=== PATIENT | male | born 1965 | race Caucasian/White ===

== ENCOUNTER 2022-11-25 07:19 | Day surgery (SDC) | payer BC ==
[~2022-11-25 07:19] MED LIST: Lactated Ringers 1,000 ML IV SCH; Lidocaine 1%/Sod Bicarbonate in NS 8.4% 1 ML Syringe IDERM PRN; Sodium Chloride 0.9% 10 ML Syringe FLUSH PRN; Sodium Chloride 0.9% 10 ML Syringe FLUSH SCH
[2022-11-25] MEDS ORDERED: Lidocaine 1% 2 ML ONE (08:06)
[2022-11-25] MEDS ORDERED: Propofol 200 MG/20 ML SDV ONE (08:06)
[2022-11-25] MEDS ORDERED: Midazolam 1 MG/ML 2 ML SDV ONE (08:07)
[2022-11-25] MEDS ORDERED: fentaNYL 100 MCG/2 ML SDV ONE (08:07)
== END 2022-11-25 09:35 | disposition home or self-care (01) ==
LOC: JD.SDS 07:19
PROVIDERS: ATTEND Surgery
DX: Z12.11 Encounter for screening for malignant neoplasm of colon (principal); I10 Essential (primary) hypertension; E78.1 Pure hyperglyceridemia; E11.40 Type 2 diabetes mellitus with diabetic neuropathy, unspecified; E11.21 Type 2 diabetes mellitus with diabetic nephropathy; Z88.0 Allergy status to penicillin; Z79.84 Long term (current) use of oral hypoglycemic drugs; Z79.4 Long term (current) use of insulin; Z79.899 Other long term (current) drug therapy; Z87.891 Personal history of nicotine dependence
CPT/HCPCS: 45378; J2250; J2704; J3010; J7120; 00812; J3490

== ENCOUNTER 2023-06-13 10:27 | Emergency (ER) | payer BC ==
[2023-06-13] MEDS ORDERED: HYDROmorphone 1 MG/ML Syringe IVPUSH ONE (10:45)
[2023-06-13] MEDS ORDERED: Sodium Chloride 0.9% 10 ML Syringe FLUSH PRN (10:46)
[2023-06-13] MEDS ORDERED: Metoclopramide 10 MG/2 ML SDV IVPUSH ONE (10:46)
[2023-06-13 11:08] LABS: BASOPHILS ABSOLUTE AUTO 0.1 K/mm3 (0.0-0.2); BASOPHILS PERCENT AUTO 0.8 % (0.0-1.0); EOSINOPHILS ABSOLUTE AUTO 0.2 K/mm3 (0.0-0.4); EOSINOPHILS PERCENT AUTO 2.3 % (0.0-6.0); HEMATOCRIT 41.7 % (42.0-52.0); HEMOGLOBIN 14.6 gm/dl (14.0-18.0); IMMATURE GRAN ABSOLUTE AUTO 0.06 K/mm3 (0.00-0.05); IMMATURE GRAN PERCENT AUTO 0.9 % (0.0-0.4); LYMPHOCYTES PERCENT AUTO 30.8 % (24.0-44.0); MEAN CORPUSCULAR HEMOGLOBIN 30.8 pg (28.0-32.0); MEAN PLATELET VOLUME 10.2 fl (9.4-12.4); MONOCYTES ABSOLUTE AUTO 0.5 K/mm3 (0.0-0.8); MONOCYTES PERCENT AUTO 7.9 % (0.0-8.0); NEUTROPHILS ABSOLUTE AUTO 3.8 K/mm3 (1.8-7.7); NEUTROPHILS PERCENT AUTO 57.3 % (41.0-71.0); PLATELET COUNT,PLT 228 K/mm3 (150-400); RED BLOOD CELL COUNT 4.74 M/mm3 (4.52-5.90)
[2023-06-13 11:25] LABS: INR 0.96; PROTHROMBIN TIME 10.3 SECONDS (9.7-12.0)
[2023-06-13 11:27] LABS: PTT,PARTIAL THROMBOPLSTIN TIME 24.7 SECONDS (21.7-31.4)
[2023-06-13 11:37] LABS: A/G RATIO 1.2 (1-2); ALANINE AMINOTRANSFERASE,ALT 61 U/L (16-63); ALBUMIN 4.3 g/dl (3.4-5.0); ALKALINE PHOSPHATASE 74 U/L (46-116); ANION GAP 16.7 (5-15); BILIRUBIN TOTAL 0.6 mg/dL (0.2-1.0); BLOOD UREA NITROGEN,BUN 31 mg/dL (7-18); C-REACTIVE PROTEIN <0.2 mg/dL (<1.0); CALCIUM 9.2 mg/dL (8.5-10.1); CARBON DIOXIDE,CO2 22 mEq/L (21-32); CHLORIDE,CL 101 mEq/L (98-107); EST CRCL DRUG DOSING (CG) 83.14 mL/min; ESTIMATED GFR 87 mL/min (>60); MAGNESIUM 1.5 mg/dL (1.8-2.4); SODIUM,NA 135 mEq/L (136-145)
[2023-06-13 11:38] LABS: GLUCOSE RANDOM 253 mg/dL (70-99); POTASSIUM,K 4.7 mEq/L (3.5-5.1)
== END 2023-06-13 13:12 | disposition home or self-care (01) ==
LOC: JD.ED 10:27
DX: R07.89 Other chest pain (principal); M75.22 Bicipital tendinitis, left shoulder; E11.9 Type 2 diabetes mellitus without complications; I10 Essential (primary) hypertension; Z79.4 Long term (current) use of insulin; Z79.82 Long term (current) use of aspirin; Z79.84 Long term (current) use of oral hypoglycemic drugs; Z79.899 Other long term (current) drug therapy; Z88.0 Allergy status to penicillin
CPT/HCPCS: 36415; 71045; 80053; 82947; 83735; 83880; 84484; 85025; 85610; 85730; 86140; 93005; 96374; 96375; 99285; J1170; J2765; J3490; 93010; 99284

== ENCOUNTER 2024-11-09 09:02 | Day surgery (SDC) | payer BC ==
[~2024-11-09 09:02] MED LIST changes: -Lactated Ringers 1,000 ML IV SCH; -Lidocaine 1%/Sod Bicarbonate in NS 8.4% 1 ML Syringe IDERM PRN
[2024-11-09] MEDS ORDERED: Triamcinolone Acetonide 40 MG/ML 1 ML SDV ONE (09:14)
[2024-11-09] MEDS: Lactated Ringers 1,000 ML IV SCH (09:30)
[2024-11-09] MEDS: Pregabalin 25 MG Cap PO ONE (10:45)
[2024-11-09] MEDS: Acetaminophen 325 MG Tab PO ONE (10:45)
[2024-11-09] MEDS: oxyCODONE ER 10 MG TAB.ER PO ONE (10:45)
[2024-11-09] MEDS ORDERED: Propofol 200 MG/20 ML SDV ONE ×4 (11:33→12:43)
[2024-11-09] MEDS ORDERED: fentaNYL 100 MCG/2 ML SDV ONE (11:34)
[2024-11-09] MEDS ORDERED: EPINEPHrine 1 MG/ML SDV ONE (11:41)
[2024-11-09] MEDS ORDERED: ceFAZolin 2 GM Vial ONE (11:52)
[2024-11-09] MEDS ORDERED: Ropivacaine 0.5% 5 MG/ML 30 ML SDV ONE (12:14)
[2024-11-09] MEDS ORDERED: dexmedeTOMIDine HCl 200 MCG/2 ML SDV ONE (12:16)
[2024-11-09] MEDS ORDERED: Dexamethasone 4 MG/ML 5 ML MDV ONE (12:17)
[2024-11-09] MEDS: Morphine 8 MG, EPINEPHrine 0.3 MG, Cefuroxime 750 MG, Ketorolac 30 MG, Sodium Chloride ... PRN (12:57)
[2024-11-09] MEDS: VANCOmycin 1 GM SDV ONE (13:03)
[2024-11-09] MEDS: Tranexamic Acid 1,000 MG/10 ML Vial ONE (13:03)
[2024-11-09] MEDS: Triamcinolone Acetonide 40 MG/ML 1 ML SDV ONE (13:17)
[2024-11-09] MEDS: Bupivacaine 0.25% 10 ML SDV ONE (13:17)
[2024-11-09] MEDS ORDERED: fentaNYL 100 MCG/2 ML SDV IVPUSH PRN (13:43)
[2024-11-09] MEDS ORDERED: Ondansetron 4 MG/2 ML SDV IVPUSH PRN (13:43)
[2024-11-09] MEDS ORDERED: HYDROmorphone 0.5 MG/0.5 ML Syringe IVPUSH PRN (13:43)
[2024-11-09] MEDS: oxyCODONE 5 MG Tab PO PRN (15:25)
== END 2024-11-09 17:05 | disposition home or self-care (01) ==
LOC: JD.SDS 09:02
PROVIDERS: ATTEND Orthopaedic Surgery
DX: M17.11 Unilateral primary osteoarthritis, right knee (principal); M70.62 Trochanteric bursitis, left hip; I10 Essential (primary) hypertension; E78.00 Pure hypercholesterolemia, unspecified; Z86.16 Personal history of COVID-19; Z88.0 Allergy status to penicillin; Z79.82 Long term (current) use of aspirin; Z79.899 Other long term (current) drug therapy; Z79.84 Long term (current) use of oral hypoglycemic drugs
CPT/HCPCS: 0055T; 20610; 27447; 64447; 73560; 97116; 97161; A9270; C1713; C1776; J0171; J0665; J0690; J0697; J1100; J1885; J2272; J2704; J2795; J3010; J3301; J7120; J3490